=== PATIENT | male | born 1995 | race Caucasian/White ===

== ENCOUNTER 2016-11-20 18:15 | Emergency (ER) | payer OTHER ==
[2016-11-20 18:21] VITALS: BP 145/73; BMI 22.7
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
== END 2016-11-20 20:21 | disposition home or self-care (01) ==
LOC: ER 18:30
DX: Z04.3 Encounter for examination and observation following other accident (principal); V49.9XXA Car occupant (driver) (passenger) injured in unspecified traffic accident, initial encounter
CPT/HCPCS: 70450; 72125; 99283